=== PATIENT | male | born 1955 | race Caucasian/White ===

== ENCOUNTER 2021-06-28 15:24 | Emergency (ER) | payer MEDICARE, BC ==
[2021-06-28 17:31] LABS: Glucose,Whole Blood 82 mg/dL (75-99)
[2021-06-28 17:36] VITALS: RESP 18
[2021-06-28] MEDS ORDERED: SODIUM CHLORIDE 0.9% 500 ML 500 ML IV ONE (17:53)
--- NOTE | 2021-06-28 17:56 | ED ---
General Adult HPI - General Chief complaint: Upper Respiratory Infection Stated complaint: Covid positive wants BAM Time Seen by Provider: 06/28/21 16:40 Source: patient Mode of arrival: ambulatory Limitations: no limitations - History of Present Illness Initial comments: 65-year-old male past medical history of hypertension presents emergency Department with reported Covid infection and is requesting antibody infusion. He was exposed to a family member on that ended up testing positive for Covid. He was tested on Wednesday the without having symptoms. He did develop symptoms on Wednesday the first. Symptoms consist of mild shortness of breath, fevers, nausea without vomiting. Has had decreased oral intake. Denies any chest pain. Has been checking his pulse ox at home without hypoxia. He did take Tylenol just prior to hospital arrival. No history of previous pulmonary or cardiac issues. No other alleviating, precipitating or modifying factors - Related Data Allergies Allergy/AdvReac Type Severity Reaction Status Date / Time codeine Allergy Unknown Verified 06/28/21 16:42 Review of Systems ROS Statement: Those systems with pertinent positive or pertinent negative responses have been documented in the HPI. ROS Other: All systems not noted in ROS Statement are negative. Past Medical History Past Medical History: Hypertension History of Any Multi-Drug Resistant Organisms: None Reported Past Surgical History: Orthopedic Surgery Additional Past Surgical History / Comment(s): knee surgery Past Psychological History: No Psychological Hx Reported Smoking Status: Never smoker Past Alcohol Use History: None Reported Past Drug Use History: None Reported General Exam Limitations: no limitations General appearance: alert, in no apparent distress Head exam: Present: atraumatic, normocephalic, normal inspection Eye exam: Present: normal appearance, PERRL, EOMI. Absent: scleral icterus, conjunctival injection, periorbital swelling ENT exam: Present: normal exam, mucous membranes moist Neck exam: Present: normal inspection. Absent: tenderness, meningismus, lymphadenopathy Respiratory exam: Present: normal lung sounds bilaterally. Absent: respiratory distress, wheezes, rales, rhonchi, stridor Cardiovascular Exam: Present: regular rate, normal rhythm, normal heart sounds. Absent: systolic murmur, diastolic murmur, rubs, gallop, clicks GI/Abdominal exam: Present: soft, normal bowel sounds. Absent: distended, tenderness, guarding, rebound, rigid Extremities exam: Present: normal inspection, full ROM, normal capillary refill. Absent: tenderness, pedal edema, joint swelling, calf tenderness Back exam: Present: normal inspection Neurological exam: Present: alert, oriented X3, CN II-XII intact Psychiatric exam: Present: normal affect, normal mood Skin exam: Present: warm, dry, intact, normal color. Absent: rash Course Vital Signs 06/28/21 06/28/21 06/28/21 16:39 17:36 20:23 Temperature 99.1 F 98.9 F Pulse Rate 96 91 Respiratory 16 18 18 Rate Blood Pressure 121/75 115/71 O2 Sat by Pulse 95 94 L Oximetry Medical Decision Making - Medical Decision Making Upon arrival, the patient is placed into room 13. A thorough history and physical exam is performed. Chest x-ray is performed. IV is established. Patient is given Regen. He is observed for one hour without worsening of his oxygenation. Patient be discharged home at this time and is instructed to check his pulse ox frequently. He has any saturations in the 80s to return to the emergency room. Needs follow up with primary care doctor in 2-4 days. Patient agreed and treatment plans discharge home in stable condition - Lab Data Lab Results 06/28/21 Range/Units 17:27 POC Glucose (mg/dL) 82 (75-99) mg/dL POC Glu Range Master ID Yousuf Ibanez Disposition Clinical Impression: COVID-19 Disposition: HOME SELF-CARE Condition: Stable Instructions (If sedation given, give patient instructions): Coronavirus Disease 2019 (COVID-19) Additional Instructions: Please follow-up with your primary care doctor in 2-4 days. Check your pulse ox at home and return for any oxyegenation in the 80s. Return to the emergency room for any new or worsening symptoms Is patient prescribed a controlled substance at d/c from ED?: No Referrals: Steven Charles MD [Primary Care Provider] - 1-2 days Time of Disposition: 17:57
--- NOTE | 2021-06-28 18:12 | XR ---
INDICATION: Patient age:Male; 65 years old; Reason for study: covid; [facility]. COMPARISON: None. TECHNIQUE: Portable AP radiograph of the chest.. FINDINGS: Lungs/Pleura: Scattered hazy densities within the periphery most pronounced on the right. Additionall y opacities within the lung bases as well as a few reticular opacities also present within the lung b ases concerning for pneumonia. There is no evidence of pleural effusion or pneumothorax. Pulmonary vascularity: Unremarkable. Heart/mediastinum: Cardiomediastinal silhouette is unremarkable. Musculoskeletal: No acute osseous pathology. IMPRESSION: Basilar hazy and reticular opacities can be seen in the setting of atypical pneumonia.
[2021-06-28] MEDS ORDERED: ONDANSETRON 4 MG/2 ML VIAL IVP STA (18:15)
[2021-06-28] MEDS ORDERED: ONDANSETRON 4 MG ODT STARTER PACK 2 TAB BTL PO STA (18:15)
[2021-06-28] MEDS ORDERED: SOTROVIMAB (EUA) 500 MG in SODIUM CHLORIDE 0.9% 100 ML IVPB ONE (18:30)
[2021-06-28] MEDS ORDERED: SODIUM CHLORIDE 0.9% 50 ML IVPB ONE (18:30)
[2021-06-28 20:24] VITALS: BP 115/71; PULSE 91; TEMP 98.9
== END 2021-06-28 20:24 | disposition home or self-care (01) ==
LOC: EC 15:24
DX: U07.1 COVID-19 (principal); I10 Essential (primary) hypertension; Z88.5 Allergy status to narcotic agent
CPT/HCPCS: 36415; 71045; 99284; 96374; 96361; J2405; S0119; Q0247